=== PATIENT | female | born 1995 | race Caucasian/White ===

== ENCOUNTER 2019-01-24 15:06 | Inpatient (IN) ==
[2019-01-24] MEDS ORDERED: BUTORPHANOL 1 MG/ML VIAL IV PRN (15:18)
[2019-01-24] MEDS ORDERED: ONDANSETRON 4 MG/2 ML VIAL IV PRN (15:18)
[2019-01-24 15:50] LABS: Basophils % 0.3 % (0.0-0.8); Eosinophils # 0.2 10*3/uL (0.0-0.87); Eosinophils % 1.7 % (0.00-10.9); Hematocrit 29.3 VOL% (35.7-47.0); Hemoglobin 9.9 GM/DL (12.0-16.0); Immature Granulocytes % 0.5 %; Immature Granulocytes Absolute 0.07 #; Lymphocytes # 3.2 10*3/uL (1.4-4.0); Lymphocytes % 22.5 % (21.3-54.2); Mean Corpuscular HGB Conc 33.8 GM/DL (32-36); Mean Corpuscular Volume 95.1 FL (87-102); Mean Platelet Volume 10.7 FL (9.6-12.0); Monocytes % 5.3 % (1.7-12.7); Neutrophils % 69.7 % (38.7-73.9); Platelet Count 244 T/CUMM (130-400); Red Blood Count 3.08 MC/CUMM (3.8-5.5); Red Cell Distribution Width 12.7 % (9.3-17.3)
[2019-01-24] MEDS ORDERED: DINOPROSTONE VAG GEL 10 MG SYRINGE VAG ONE (16:07)
[2019-01-24 16:10] LABS: Alanine Aminotransferase 9 U/L (13-56); Albumin 2.6 G/DL (3.4-5.0); Alkaline Phosphatase 176 U/L (45-117); Aspartate Amino Transferase 6 U/L (0-37); Bilirubin,Total < 0.39 MG/DL (0.2-1.0); Blood Urea Nitrogen 5 MG/DL (7-18); Calcium 8.1 MG/DL (8.5-10.1); Estimated Glom Filtration Rate 140 ML/MIN; Glucose 84 MG/DL (74-106); Osmolality,Calculated 270.7 MOS/KG (273-304); Total Protein 6.3 G/DL (6.4-8.3)
[2019-01-24 17:03] LABS: Apearance,Urine CLOUDY (Clear); Bilirubin,Urine Negative (Negative); Blood, Urine Negative (Negative); Glucose,Urine (UA) Negative (Negative); Ketones,Urine 80 mg/dL (Negative); Mucus,Urine Occasional /LPF (Occasional); Nitrite,Urine Negative (Negative); Protein,Urine Negative; RBC,Urine <1 /HPF (0-4); Squamous Epithelial Cell,Urine Occasional /HPF (0-10); Transitional Epi Cells,Urine Occasional /HPF (<1); Urine Color Yellow (Yellow); Urine Specific Gravity 1.026 (1.001-1.035); WBC,Urine 1 /HPF (0-6)
[2019-01-25] MEDS ORDERED: OXYTOCIN/LR 20 UNIT/1,000 ML BAG IV SCH (02:00)
[2019-01-25] MEDS: LACTATED RINGERS 1,000 ML IV SCH ×2 (02:02→11:32)
[2019-01-25] MEDS: CLINDAMYCIN INJ 900 MG in PREMIX 1 EACH IV SCH ×2 (02:05→09:56)
[2019-01-25] MEDS ORDERED: NALOXONE 0.4 MG/ML VIAL IV PRN (07:09)
[2019-01-25] MEDS ORDERED: PROMETHAZINE 25 MG/1 ML VIAL IM ONE (07:09)
[2019-01-25] MEDS ORDERED: ePHEDrine 50 MG/ML AMP IV PRN (07:09)
[2019-01-25] MEDS ORDERED: hydrOXYzine HCL 25 MG/1 ML VIAL IM PRN (07:09)
[2019-01-25] MEDS ORDERED: diphenhydrAMINE 50 MG/1 ML VIAL IV PRN ×2 (07:09)
[2019-01-25] MEDS ORDERED: ONDANSETRON 4 MG/2 ML VIAL IV ONE (07:09)
[2019-01-25] MEDS ORDERED: CITRIC ACID/SODIUM CITRATE 30 ML UDCUP PO ONE (07:11)
[2019-01-25] MEDS ORDERED: FAMOTIDINE 20 MG/2 ML VIAL IV ONE (07:11)
[2019-01-25] MEDS ORDERED: fentaNYL 2 MCG/ROPIV 0.2% EPID 100 ML EPIDURAL SCH (07:30)
[2019-01-25 09:05] LABS: Apearance,Urine CLEAR (Clear); Bilirubin,Urine Negative (Negative); Blood, Urine Negative (Negative); Glucose,Urine (UA) Negative (Negative); Ketones,Urine Negative (Negative); Nitrite,Urine Negative (Negative); Protein,Urine Negative; RBC,Urine <1 /HPF (0-4); Squamous Epithelial Cell,Urine Occasional /HPF (0-10); Urine Specific Gravity 1.004 (1.001-1.035); Urine Urobilinogen < 2.0 EU/DL (0.2-1.0); WBC,Urine <1 /HPF (0-6)
[2019-01-25 09:13] LABS: Urine Color Light Yellow (Yellow)
[2019-01-25] MEDS ORDERED: miSOPROStoL 200 MCG TABLET ONE (09:36)
[2019-01-25] MEDS ORDERED: METHYLERGONOVINE 0.2 MG/1 ML AMP ONE (09:36)
[2019-01-25] MEDS ORDERED: OXYTOCIN/LR 20 UNIT/1,000 ML BAG IV ONE ×2 (10:54→14:59)
[2019-01-25 11:27] LABS: Cord Venous Blood HCO3 22.2 MMOL/L; Cord Venous Blood PCO2 45.6 MMHG; Cord Venous Blood PO2 30.1
[2019-01-25] MEDS ORDERED: IBUPROFEN 800 MG TABLET PO PRN (13:48)
[2019-01-25] MEDS ORDERED: ACETAMINOPHEN 325 MG TABLET PO PRN (13:48)
[2019-01-25] MEDS ORDERED: WITCH HAZEL PADS 100/JAR TOP PRN (13:48)
[2019-01-25] MEDS ORDERED: MEASLES/MUMPS/RUBELLA VACCINE 0.5 ML VIAL SUBCUT ONE (13:48)
[2019-01-25] MEDS ORDERED: BISACODYL 10 MG SUPP RECTAL PRN (13:48)
[2019-01-25] MEDS ORDERED: HYDROCORTISONE 2.5% RECTAL CREAM 30 GM TUBE TOP PRN (13:48)
[2019-01-25] MEDS ORDERED: LANOLIN 50% CREAM 0.3 OZ TUBE TOP PRN (13:48)
[2019-01-25] MEDS ORDERED: BENZOCAINE 20%/MENTHOL 0.5% SPRAY 56 GM CAN TOP PRN (13:48)
[2019-01-25] MEDS ORDERED: oxyCODONE/ACETAMINOPHEN 5-325 MG TABLET PO PRN (13:48)
[2019-01-25] MEDS ORDERED: DIPH/TET/ACEL PERT BOOSTER VACCINE 0.5 ML VIAL IM ONE (13:48)
[2019-01-25] MEDS ORDERED: RHO(D) IMMUNE GLOBULIN 300 MCG SYRINGE IM ONE (13:48)
[2019-01-25] MEDS: DOCUSATE SODIUM 100 MG CAPSULE PO SCH (21:02)
[2019-01-25] MEDS: oxyCODONE/ACETAMINOPHEN 5-325 MG TABLET PO PRN (21:02)
[2019-01-26 05:07] LABS: Basophils % 0.2 % (0.0-0.8); Eosinophils # 0.4 10*3/uL (0.0-0.87); Eosinophils % 2.6 % (0.00-10.9); Hematocrit 30.4 VOL% (35.7-47.0); Hemoglobin 10.1 GM/DL (12.0-16.0); Immature Granulocytes % 0.6 %; Immature Granulocytes Absolute 0.09 #; Lymphocytes # 3.6 10*3/uL (1.4-4.0); Mean Corpuscular HGB Conc 33.2 GM/DL (32-36); Mean Corpuscular Volume 95.6 FL (87-102); Monocytes % 5.7 % (1.7-12.7); Neutrophils % 66.9 % (38.7-73.9); Platelet Count 221 T/CUMM (130-400); Red Blood Count 3.18 MC/CUMM (3.8-5.5); Red Cell Distribution Width 12.7 % (9.3-17.3); White Blood Count 14.9 T/CUMM (4-12)
[2019-01-26] MEDS: DOCUSATE SODIUM 100 MG CAPSULE PO SCH ×2 (09:58→21:10)
[2019-01-26] MEDS: oxyCODONE/ACETAMINOPHEN 5-325 MG TABLET PO PRN ×2 (10:01→22:25)
[2019-01-27 07:24] VITALS: BP 101/52
[2019-01-27] MEDS ORDERED: INFLUENZA VIRUS VACCINE 0.5 ML SYRINGE IM ONE (08:26)
[2019-01-27] MEDS ORDERED: DIPH/TET/ACEL PERT BOOSTER VACCINE 0.5 ML VIAL IM ONE (08:26)
[2019-01-27] MEDS: DOCUSATE SODIUM 100 MG CAPSULE PO SCH (09:57)
== END 2019-01-27 13:05 | disposition home or self-care (01) | DRG 560 ==
LOC: N.LDOUT 15:06 → N.LD 15:08 → N.OB 01-25 13:29
PROVIDERS: ADMIT Obstetrics & Gynecology; ATTEND Obstetrics & Gynecology